=== PATIENT | female | born 1955 | race Caucasian/White ===

== ENCOUNTER 2022-04-07 19:41 | Inpatient (IN) ==
[2022-04-07] MEDS ORDERED: cefTRIAXone 1,000 MG in 0.9 % Sodium Chloride 10 ML IVP ONE (19:47)
[2022-04-07] MEDS ORDERED: Furosemide 40 MG/4 ML VIAL IVP ONE (19:47)
[2022-04-07 19:56] LABS: Basophils # 0.1 K/mcL (0.0-0.2); Basophils % 0.7 %; Eosinophils # 0.2 K/mcL (0.0-0.6); Hematocrit 42.7 % (35.3-44.9); Hemoglobin 14.4 g/dL (11.5-15.4); Immature Granulocytes % 0.5 % (0-4); Lymphocytes # 2.9 K/mcL (0.6-4.6); Lymphocytes % 24.3 %; Mean Corpuscular HGB Conc 33.7 g/dL (31.6-35.5); Mean Corpuscular Hemoglobin 31.2 pg (28.0-33.3); Mean Corpuscular Volume 92.4 fL (83.0-100.0); Mean Platelet Volume 10.7 fL (9.4-12.4); Monocytes # 0.7 K/mcL (0.0-1.3); Monocytes % 6.3 %; Neutrophils # 7.8 K/mcL (1.6-8.9); Platelet Count 242 K/mcL (140-400); Red Blood Count 4.62 M/mcL (3.82-4.97); Segmented Neutrophils % 66.2 %; White Blood Count 11.8 K/mcL (4.3-11.1)
[2022-04-07 19:57] LABS: ABG Base Excess 0 mEq/L (-2 to 3); ABG HCO3 26 mEq/L (21-27); ABG Oxygen Saturation 94 % (95-98); ABG PCO2 47 mmHg (35-45); ABG PH 7.36 pH Units (7.32-7.45); ABG PO2 75 mmHg (85-104); ABG TCO2 28 mEq/L (20-26)
[2022-04-07 20:03] LABS: Prothrombin Time 11.1 Seconds (9.4-12.1)
[2022-04-07 20:06] LABS: Activated Partial Thrombo Time 31.7 Seconds (26.0-36.0)
[2022-04-07 20:18] LABS: Alanine Aminotransferase 11 Units/L (7-52); Albumin 4.3 g/dL (3.5-5.7); Albumin/Globulin Ratio 1.1 (1.1-2.2); Alkaline Phosphatase 118 Units/L (34-104); Aspartate Amino Transferase 16 Units/L (13-39); BUN/Creatinine Ratio 23 (6-26); Bilirubin,Indirect 0.4 mg/dL (0.0-1.0); Bilirubin,Total 0.4 mg/dL (0.3-1.0); Blood Urea Nitrogen 27 mg/dL (8-23); Calcium 9.8 mg/dL (8.6-10.3); Carbon Dioxide 25 mEq/L (23-29); Chloride 102 mEq/L (98-107); Globulin 3.8 g/dL (2.4-3.5); Glucose 183 mg/dL (70-105); Osmolality,Calculated 294 (280-300); Potassium 3.4 mEq/L (3.5-5.1); Sodium 137 mEq/L (136-145); Total Protein 8.1 g/dL (6.4-8.9); Troponin I < 0.03 ng/mL (< 0.04); eGFR For African Americans 56 (> 60); eGFR For Non-African Americans 46 (> 60)
[2022-04-07 20:41] LABS: Influenza A PCR Negative (Negative); Influenza B PCR Negative (Negative); Resp. Syncytial Virus PCR Negative (Negative)
[2022-04-07 20:42] LABS: SARS-CoV-2 by PCR (In House) Negative (Negative)
[2022-04-07] MEDS ORDERED: diazePAM 10 MG/2 ML SYRINGE IVP STA (21:38)
[2022-04-07] MEDS ORDERED: Naloxone 0.4 MG/ML INJ IVP PRN (22:01)
[2022-04-07] MEDS ORDERED: Perflutren Lipid Microsphere 1.3 ML in 0.9 % Sodium Chloride 8.7 ML IVP PRN (22:21)
[2022-04-07] MEDS: Gabapentin 100 MG CAPSULE PO SCH (23:24)
[2022-04-07] MEDS ORDERED: Acetaminophen 325 MG TABLET PO PRN (23:29)
[2022-04-07] MEDS: NIFEdipine XL (24 HR) 60 MG TAB.ER.24 PO SCH (23:37)
[2022-04-08] MEDS ORDERED: Iopamidol - 370 500 ML MLS IVP ONE (00:30)
[2022-04-08] MEDS ORDERED: Albuterol 2.5 MG/3 ML NEBULIZER IH PRN (00:33)
[2022-04-08 01:14] LABS: Bilirubin,Urine Negative (Negative); Blood,Urine Negative (Negative); Clarity,Urine Clear (Clear); Color,Urine Colorless (Yellow); Glucose,Urine (UA) Normal (Normal); Ketones,Urine Negative (Negative); Leukocyte Esterase,Urine Negative (Negative); Mucus,Urine Few per lpf (None-Few); Nitrite,Urine Negative (Negative); PH,Urine 6.5 pH Units (5.0-8.0); Protein,Urine 50 mg/dL (Neg-Trace); RBC,Urine 0-3 per hpf (0-3); Specific Gravity,Urine 1.008 (1.010-1.025); Squamous Epithelial Cell,Urine Few per hpf (None-Few); Urobilinogen,Urine Normal (Normal); WBC,Urine 0-3 per hpf (0-3)
[2022-04-08 01:39] LABS: Amphetamine Screen,Urine Negative ng/mL (Cutoff=1000); Barbiturate Screen,Urine Negative ng/mL (Cutoff=200); Benzodiazepines Screen,Urine Negative ng/mL (Cutoff=200); Cannabinoid Screen,Urine Negative ng/mL (Cutoff = 50); Cocaine Screen,Urine Negative ng/mL (Cutoff= 300); Opiate Screen,Urine Negative ng/mL (Cutoff=300); Phencyclidine Screen,Urine Negative ng/mL (Cutoff=25)
[2022-04-08] MEDS: Ipratropium/Albuterol Neb 3 ML IH SCH ×5 (02:00→22:51)
[2022-04-08 02:03] LABS: Hematocrit 39.9 % (35.3-44.9); Hemoglobin 13.3 g/dL (11.5-15.4); Mean Corpuscular HGB Conc 33.3 g/dL (31.6-35.5); Mean Corpuscular Hemoglobin 30.4 pg (28.0-33.3); Mean Corpuscular Volume 91.3 fL (83.0-100.0); Mean Platelet Volume 10.9 fL (9.4-12.4); Platelet Count 242 K/mcL (140-400); Red Blood Count 4.37 M/mcL (3.82-4.97); Red Cell Distribution Width 12.8 % (11.5-14.5); White Blood Count 16.1 K/mcL (4.3-11.1)
[2022-04-08 02:26] LABS: Albumin 4.1 g/dL (3.5-5.7); Albumin/Globulin Ratio 1.1 (1.1-2.2); Bilirubin,Total 0.5 mg/dL (0.3-1.0); Calcium 9.6 mg/dL (8.6-10.3); Chol/HDL Ratio 5.7 (0-4.9); Globulin 3.6 g/dL (2.4-3.5); Total Protein 7.7 g/dL (6.4-8.9)
[2022-04-08 02:27] LABS: Magnesium 1.7 mg/dL (1.6-2.6); Phosphorous 3.7 mg/dL (2.7-4.5)
[2022-04-08 02:36] LABS: Thyroid Stimulating Hormone 1.373 mcIU/mL (0.340-5.600)
[2022-04-08] MEDS ORDERED: Ondansetron 4 MG/2 ML VIAL IVP PRN (02:46)
[2022-04-08 04:08] LABS: Estimated Average Glucose 137 mg/dl; Hemoglobin A1C 6.4 %
[2022-04-08] MEDS ORDERED: *HR* Heparin 5,000 UNIT/ML VIAL SQ SCH (06:00)
[2022-04-08] MEDS ORDERED: Dextrose Gel 15 GM/37.5 ML TUBE PO PRN ×2 (06:38)
[2022-04-08] MEDS ORDERED: D5% in Water 1,000 ML IVC PRN (06:38)
[2022-04-08] MEDS ORDERED: *HR* Dextrose 50 % in Water (Syg) 50 ML SYRINGE IVP PRN (06:38)
[2022-04-08] MEDS ORDERED: Azithromycin 500 MG in 0.9 % Sodium Chloride 250 ML IVPB SCH (07:00)
[2022-04-08] MEDS: NIFEdipine XL (24 HR) 60 MG TAB.ER.24 PO SCH (08:46)
[2022-04-08] MEDS ORDERED: predniSONE 20 MG TABLET PO SCH (09:00)
[2022-04-08] MEDS ORDERED: *HR* Heparin 5,000 UNIT/ML VIAL IVP ONE (11:58)
[2022-04-08] MEDS ORDERED: *HR* Heparin 5,000 UNIT/ML VIAL IVP PRN ×2 (11:58)
[2022-04-08] MEDS: Heparin 25,000UNIT/250ML 1/2NS 25,000 UNIT/250 ML IV.SOLN IVC SCH (12:28)
[2022-04-08 12:59] LABS: Hematocrit 38.7 % (35.3-44.9); Mean Corpuscular HGB Conc 33.6 g/dL (31.6-35.5); Mean Corpuscular Hemoglobin 30.5 pg (28.0-33.3); Mean Corpuscular Volume 90.8 fL (83.0-100.0); Mean Platelet Volume 11.5 fL (9.4-12.4); Platelet Count 237 K/mcL (140-400); Red Blood Count 4.26 M/mcL (3.82-4.97); Red Cell Distribution Width 12.9 % (11.5-14.5); White Blood Count 15.1 K/mcL (4.3-11.1)
[2022-04-08 13:12] LABS: Heparin anti-factor XA UFH < 0.04 IU/mL (0.30-0.70); INR 1.1; Prothrombin Time 11.7 Seconds (9.4-12.1)
[2022-04-08 17:50] LABS: Basophils % 0.2 %; Hematocrit 38.3 % (35.3-44.9); Hemoglobin 12.8 g/dL (11.5-15.4); Immature Granulocytes % 0.6 % (0-4); Lymphocytes # 0.8 K/mcL (0.6-4.6); Lymphocytes % 5.8 %; Mean Corpuscular HGB Conc 33.4 g/dL (31.6-35.5); Mean Corpuscular Hemoglobin 30.5 pg (28.0-33.3); Mean Corpuscular Volume 91.4 fL (83.0-100.0); Mean Platelet Volume 11.1 fL (9.4-12.4); Monocytes # 0.2 K/mcL (0.0-1.3); Monocytes % 1.3 %; Neutrophils # 12.2 K/mcL (1.6-8.9); Platelet Count 245 K/mcL (140-400); Red Blood Count 4.19 M/mcL (3.82-4.97); Red Cell Distribution Width 12.8 % (11.5-14.5); Segmented Neutrophils % 92.1 %; White Blood Count 13.3 K/mcL (4.3-11.1)
[2022-04-08] MEDS: Gabapentin 100 MG CAPSULE PO SCH (20:02)
[2022-04-09 01:59] LABS: Hematocrit 34.3 % (35.3-44.9); Hemoglobin 11.6 g/dL (11.5-15.4); Mean Corpuscular HGB Conc 33.8 g/dL (31.6-35.5); Mean Corpuscular Hemoglobin 30.8 pg (28.0-33.3); Mean Platelet Volume 11.7 fL (9.4-12.4); Platelet Count 229 K/mcL (140-400); Red Blood Count 3.77 M/mcL (3.82-4.97); Red Cell Distribution Width 12.7 % (11.5-14.5); White Blood Count 15.7 K/mcL (4.3-11.1)
[2022-04-09 02:10] LABS: Prothrombin Time 11.4 Seconds (9.4-12.1)
[2022-04-09 02:22] LABS: Calcium 9.8 mg/dL (8.6-10.3); Potassium 3.6 mEq/L (3.5-5.1)
[2022-04-09] MEDS: Ipratropium/Albuterol Neb 3 ML IH SCH ×5 (04:22→21:54)
[2022-04-09] MEDS ORDERED: amLODIPine 5 MG TABLET PO SCH (09:00)
[2022-04-09] MEDS ORDERED: Metoprolol XL (24 HR) Succ 25 MG TAB.ER.24H PO SCH (09:00)
[2022-04-09] MEDS ORDERED: lisinopriL 10 MG TABLET PO SCH (09:00)
[2022-04-09] MEDS: Heparin 25,000UNIT/250ML 1/2NS 25,000 UNIT/250 ML IV.SOLN IVC SCH (10:06)
[2022-04-09] MEDS ORDERED: carvediloL 6.25 MG TABLET PO SCH (17:00)
[2022-04-09] MEDS: Gabapentin 100 MG CAPSULE PO SCH (20:55)
[2022-04-10 01:23] LABS: Hematocrit 36.8 % (35.3-44.9); Hemoglobin 12.3 g/dL (11.5-15.4); Mean Corpuscular HGB Conc 33.4 g/dL (31.6-35.5); Mean Corpuscular Hemoglobin 30.9 pg (28.0-33.3); Mean Corpuscular Volume 92.5 fL (83.0-100.0); Mean Platelet Volume 11.3 fL (9.4-12.4); Platelet Count 215 K/mcL (140-400); Red Blood Count 3.98 M/mcL (3.82-4.97); White Blood Count 13.5 K/mcL (4.3-11.1)
[2022-04-10 02:04] LABS: BUN/Creatinine Ratio 25 (6-26); Blood Urea Nitrogen 28 mg/dL (8-23); Calcium 9.3 mg/dL (8.6-10.3); Carbon Dioxide 28 mEq/L (23-29); Chloride 101 mEq/L (98-107); Glucose 123 mg/dL (70-105); Osmolality,Calculated 291 (280-300); Potassium 3.9 mEq/L (3.5-5.1); Sodium 137 mEq/L (136-145); eGFR For African Americans > 60 (> 60); eGFR For Non-African Americans 50 (> 60)
[2022-04-10] MEDS: Ipratropium/Albuterol Neb 3 ML IH SCH ×2 (04:14→10:04)
[2022-04-10 06:29] VITALS: TEMP 98
[2022-04-10 07:18] VITALS: O2SAT 95
[2022-04-10] MEDS ORDERED: carvediloL 6.25 MG TABLET PO SCH (08:00)
[2022-04-10] MEDS ORDERED: amLODIPine 5 MG TABLET PO SCH (09:00)
[2022-04-10 09:48] VITALS: BP 164/84; PULSE 70
[2022-04-10] MEDS ORDERED: *HR* Heparin 5,000 UNIT/ML VIAL SQ SCH (18:00)
== END 2022-04-10 10:13 | disposition home or self-care (01) | DRG 280 ==
LOC: EMEROOARM 19:41 → 2NNU 19:41 → SUATTDRO 22:11 → 2NNU 22:45
PROVIDERS: ADMIT Internal Medicine; ATTEND Internal Medicine